=== PATIENT | male | born 1960 | race Caucasian/White ===

== ENCOUNTER → 2017-05-25 | Outpatient (CLI) | payer BC ==
[~2017-05-25] MED LIST: ATEN-175 PO; BENA1TAB53 PO; NISO20TA PO
[2017-05-25 12:38] LABS: BASO % 0.3 %; BASO ABS # 0.03 K/uL (0-0.2); EOS % 3.5 %; HEMATOCRIT 43.4 % (42-52); HEMOGLOBIN 14.7 g/dL (14.0-18.0); IG# 0.02 K/uL (0.00-0.02); LYMPH % 31.5 %; LYMPH ABS # 2.71 K/uL (1.2-3.4); MEAN CELL VOLUME 84.3 fL (80-100); MEAN CORPUSCULAR HEMOGLOBIN 28.5 pg (25-34); MEAN CORPUSCULAR HGB CONC 33.9 g/dl (32-36); MEAN PLATELET VOLUME 10.4 fL (7.4-10.4); MONO % 6.9 %; MONO ABS # 0.59 K/uL (0.11-0.59); NEUT % 57.6 %; NEUT ABS # 4.96 K/uL (1.4-6.5); PLATELET COUNT 240 K/uL (130-400); RED CELL DISTRIBUTION WIDTH CV 13.4 % (11.5-14.5); RED CELL DISTRIBUTION WIDTH SD 40.8 fL (36.4-46.3); WHITE BLOOD COUNT 8.61 K/uL (4.8-10.8)
[2017-05-25 12:55] LABS: HEMOGLOBIN A1C 8.6 % (4.5-5.6)
[2017-05-25 14:15] LABS: ALBUMIN 3.6 gm/dl (3.4-5.0); ALT/SGPT 61 U/L (12-78); AST/SGOT 48 U/L (15-37); BLOOD UREA NITROGEN 14 mg/dl (7-18); CALCIUM 9.2 mg/dl (8.5-10.1); CARBON DIOXIDE 32 mmol/L (21-32); CREATININE 1.04 mg/dl (0.60-1.40); GLUCOSE 186 mg/dl (70-99); POTASSIUM 3.4 mmol/L (3.5-5.1); SODIUM 136 mmol/L (136-145)
[2017-05-25 14:25] LABS: ALKALINE PHOSPHATASE 82 U/L (45-117); TOTAL PROTEIN 8.4 gm/dl (6.4-8.2)
== END | disposition home or self-care (01) ==
LOC: C.LABMFLN 07:55
PROVIDERS: ATTEND Family Medicine
DX: I10 Essential (primary) hypertension (principal); E03.9 Hypothyroidism, unspecified; E11.9 Type 2 diabetes mellitus without complications; K21.9 Gastro-esophageal reflux disease without esophagitis

== ENCOUNTER → 2017-06-24 | Outpatient (CLI) | payer BC ==
--- NOTE | 2017-06-24 10:11 | DIAGNOSTIC IMAGING REPORT ---
CHEST 2 VIEWS ROUTINE CLINICAL HISTORY: R05 Cough COMPARISON STUDY: 03/08/2007 FINDINGS: The heart is at the upper limits of normal in size. There is no failure. There is no focal pulmonary consolidation. There are no pleural effusions.[ IMPRESSION: No active disease in the chest. Electronically signed by: Jean Goldman M.D. 06/24/2017 10:10 AM Dictated Date/Time: 06/24/2017 10:08 AM
== END | disposition home or self-care (01) ==
LOC: C.RAD1850 10:01
PROVIDERS: ATTEND Dermatology
DX: R05 Cough (principal); E87.6 Hypokalemia; E11.9 Type 2 diabetes mellitus without complications